=== PATIENT | female | born 1950 | race Caucasian/White ===

== ENCOUNTER 2019-12-18 12:46 | Emergency (ER) | payer MEDICARE ==
[~2019-12-18] VITALS: Ht 154.9 cm; Wt 71.0 kg
[~2019-12-18 12:46] MED LIST: IBUP-2030 PO; METF-414 PO
[2019-12-18] MEDS ORDERED: METHYLPREDNISOLONE SOD SUCC 125 MG/2 ML VIAL IM ONE (14:00)
[2019-12-18 14:35] VITALS: BP 157/58
== END 2019-12-18 14:39 | disposition home or self-care (01) ==
LOC: ER 13:04
DX: L50.9 Urticaria, unspecified (principal); L30.9 Dermatitis, unspecified; E11.9 Type 2 diabetes mellitus without complications; E78.00 Pure hypercholesterolemia, unspecified; Z88.8 Allergy status to other drugs, medicaments and biological substances
CPT/HCPCS: 96372; 99283; J2930

== ENCOUNTER 2020-08-19 13:12 | Emergency (ER) | payer MEDICARE ==
[~2020-08-19] VITALS: Ht 154.9 cm; Wt 76.0 kg
[2020-08-19] MEDS ORDERED: KETOROLAC 15MG/ML VIAL IM ONE (13:30)
[2020-08-19] MEDS ORDERED: ACET-2708 MT (13:47)
[2020-08-19 14:07] VITALS: BP 167/52
== END 2020-08-19 14:08 | disposition home or self-care (01) ==
LOC: ER 13:54
DX: M25.511 Pain in right shoulder (principal); E78.00 Pure hypercholesterolemia, unspecified; E11.9 Type 2 diabetes mellitus without complications; E05.90 Thyrotoxicosis, unspecified without thyrotoxic crisis or storm; Z88.8 Allergy status to other drugs, medicaments and biological substances; Z79.899 Other long term (current) drug therapy; Z90.49 Acquired absence of other specified parts of digestive tract
CPT/HCPCS: 73030; 96372; 99283; J1885